=== PATIENT | male | born 1975 | race Caucasian/White ===

== ENCOUNTER 2020-01-11 07:23 | Outpatient (CLI) | payer BC, SELFPAY ==
[2020-01-14 21:18] LABS: Patient Race White; SARS-CoV-2 RNA Undetected (Undetected); SARS-CoV-2 Specimen Source Nasal
== END 2020-01-11 07:43 ==
PROVIDERS: PCP Family Medicine; Visit Provider Family Medicine
DX: Z20.828 Contact with and (suspected) exposure to other viral communicable diseases (principal)
CPT/HCPCS: U0003

== ENCOUNTER 2020-03-06 18:46 | Outpatient (REF) | payer BC, SELFPAY ==
[2020-03-06 22:19] LABS: Calculated LDL 161 mg/dL (<100); Cholesterol 252 mg/dL (<200); Glucose 104 mg/dL (74-106); HDL Cholesterol 36 mg/dL (40-60); Triglyceride 276 mg/dL (<150)
== END 2020-03-06 19:06 ==
LOC: LBN 18:46
PROVIDERS: PCP Family Medicine; Visit Provider Family Medicine
DX: E78.5 Hyperlipidemia, unspecified (principal); R73.9 Hyperglycemia, unspecified
CPT/HCPCS: 80061; 82947

== ENCOUNTER 2020-03-11 02:21 | Outpatient (CLI) | payer BC, SELFPAY ==
[2020-03-12 13:22] LABS: COVID-19 RT-PCR UVMMC Result Negative (Negative)
== END 2020-03-11 02:41 ==
PROVIDERS: PCP Family Medicine; Visit Provider Internal Medicine Cardiovascular Disease
DX: Z11.52 Encounter for screening for COVID-19 (principal); Z01.810 Encounter for preprocedural cardiovascular examination
CPT/HCPCS: U0003

== ENCOUNTER 2020-03-14 00:47 | Outpatient (CLI) | payer BC, SELFPAY ==
--- NOTE | 2020-03-14 13:00 | ETT_ITS ---
APPROVED REPORT Exam: Exercise Treadmill Patient Location: Out-Patient Room/Bed: Stress Nurse: Gege Vides RN, Shan Olson RN Ordering Provider:FLACO HERNANDEZ, Contact Number: [phone] BMI: 28.64 Baseline Rhythm: Sinus Rhythm Indications: Left arm pain w/ associated diaphoresis and SOB Medical History Medical History: HLD, vertigo Cardiac Medications: None. Allergies: NKA Cardiac Risk Factors: HLD, family hx Previous Cardiac Procedures: None. Pretest Chest Pain Characteristics: None. Exercise History: Sedentary Physical Disabilities: None. Lung Sounds: Clear to auscultation Heart Sounds: Regular Stress Test Details Test: Exercise stress testing was performed using a Td protocol. Rest Stress HR Resting HR Supine: 74 bpm Max Heart Rate (APMHR): 176 bpm Resting HR Standin bpm Target HR (85% APMHR): 149 bpm Max HR Achieved: 162 bpm % of APMHR: 92 Recovery HR: 99 bpm HR response to stress: Normal HR response to stress BP Resting BP Supine: 138/96 mmHg Resting BP Standin/94 mmHg Max BP: 166/80 mmHg Recovery BP: 140/82 mmHg BP response to stress: Normal blood pressure response to stress. ECG Resting ECG: Sinus Rhythm Ectopy: None. Stress ECG: Sinus Tachycardia ST Change: No significant ST segment changes noted Arrhythmia: None. Recovery ECG: Sinus Rhythm Recovery ST Change: No significant ST segment changes noted Recovery Arrhythmia: None. Clinical Reason for Termination: Leg pain/Claudication Stress Symptoms: Leg Fatigue Exercise duration: 9 min22 sec Highest Stage Reached: Stage 4: 4.2 mph at 16% grade. Exercise capacity: 10.77 METs Pop Treadmill Score: 8.5 Rate Pressure Product: [id number] Stress ECG Conclusion 1. The resting electrocardiogram is within normal limits 2. Patient exercised on the Td protocol and completed a workload of 10.77 METS, 9-minute 22 second s. He achieved 92% of predicted heart rate for age without anginal symptoms. Heart rate and blood p ressure response to exercise was normal. 3. Electrocardiographically there was no evidence of myocardial ischemia 4. There were no dysrhythmias 5. Low risk Pop treadmill score, 8.5 Pop Treadmill Score is 8.5 which is Low risk. Stress Test Summary STAGE Time (mins) Speed (mph) Grade (%) HR BP SYMPTOMS METS Supine 74 138/96 Standing 79 132/94 1 3 1.7 10 119 140/90 4.6 2 6 2.5 12 136 152/88 7 3 9 3.4 14 154 160/84 10.2 1 min recovery 140 166/80 3 min recovery 109 162/80 6 min recovery 99 140/82
== END 2020-03-14 01:07 ==
PROVIDERS: PCP Family Medicine; Visit Provider Family Medicine
DX: M79.602 Pain in left arm (principal); R61 Generalized hyperhidrosis; R06.02 Shortness of breath; E78.5 Hyperlipidemia, unspecified; Z82.49 Family history of ischemic heart disease and other diseases of the circulatory system
CPT/HCPCS: 93017

== ENCOUNTER 2021-06-10 12:44 | Outpatient (REF) | payer OTHER, SELFPAY ==
[2021-06-10 13:09] LABS: Bilirubin Negative (Negative); Blood Small (Negative); Clarity Clear (Clear); Glucose Negative (Negative); Ketones Negative (Negative); Leukocyte Esterase Negative (Negative); Nitrite Negative (Negative); Specific Gravity 1.015 (1.005-1.025); Urobilinogen 0.2 EU/dL (Up TO 0.2)
[2021-06-10 13:17] LABS: Bacteria Negative HPF (Negative); C & S Indicated? No; Casts Negative LPF (Negative); Crystals Negative HPF (Negative); Epithelial Cells Rare HPF (Negative); Mucus Trace (Negative); WBC Negative HPF (0-5)
== END 2021-06-10 12:45 | disposition home or self-care (01) ==
LOC: LBN 12:44
PROVIDERS: PCP Family Medicine; Visit Provider Family Medicine
DX: R31.9 Hematuria, unspecified (principal)
CPT/HCPCS: 81003; 81015

== ENCOUNTER 2022-07-08 08:36 | Outpatient (CLI) | payer OTHER, SELFPAY ==
[2022-07-08 13:15] LABS: Calculated LDL 165 mg/dL (<100); Cholesterol 226 mg/dL (<200); Glucose 109 mg/dL (74-106); HDL Cholesterol 43 mg/dL (40-60); Triglyceride 94 mg/dL (<150)
== END 2022-07-08 08:37 | disposition home or self-care (01) ==
LOC: LOS 08:37
PROVIDERS: PCP Family Medicine; Visit Provider Family Medicine
DX: E78.5 Hyperlipidemia, unspecified (principal); R73.9 Hyperglycemia, unspecified
CPT/HCPCS: 36415; 80061; 82947